=== PATIENT | female | born 1985 | race Caucasian/White ===

== ENCOUNTER 2017-04-05 17:40 | Inpatient (IN) | payer OTHER ==
[~2017-04-05] VITALS: Ht 157.5 cm; Wt 105.7 kg
[~2017-04-05 17:40] MED LIST: FERR SULFATE325 MG PO; FERROUS SULF325 M2 PO; GLYBURIDE5 M1 PO; OMNICEF300 MG PO; PRE-NATAL PO; ROCEPHIN 1 GM1 GM PO; ZITHROMAX500 MG PO
--- NOTE | 2017-04-05 17:55 | NUR ---
PT ARRIVED AMBULATORY FROM DR. GALE OFFICE HE TRIED EXTENSIVELY TO GET FHT AND WAS UNABLE TO. ORDERS FOR NST. PT HAD ACCUCHECK AT OFFICE WHICH WAS 80. SHE STATES THAT SHE FELT FM THIS AFTERNOON. ABDOMEN IS TENSE, WITH IMPRESSION OF LARGE AMT.OF AF AND LARGE FETUS. SHE IS NOT FEELING ANY CONTRACTIONS, NO VAGINAL BLEEDING. SHE DENIES HX OF MEDICAL PROBLEMS EXCEPT GESTATIONAL DIABETES ON GLYBURIDE DAILY AND HX OF C/S X 2.
[2017-04-05 18:15] VITALS: BP 143/77
--- NOTE | 2017-04-05 18:20 | NUR ---
DR. JOHNSON NOTIFIED THAT NO FHT IS HEARD DISPITE >25 MINUTES OF AUSCULTATION WITH EXTERNAL MONITOR, FETASCOPE AND DOPPLER. U/S PENDING. NO FURTHER ORDERS RECEIVED AT THIS TIME. PT AND AWARE OF PLAN OF CARE, REMAIN CALM. MOTHER THOUGHT SHE FELT FM BUT THERE WAS A CONTRACTION AND STILL UNABLE TO HEAR FHT.
[2017-04-05 18:35] LABS: URINE BILIRUBIN - DIPSTICK NEGATIVE (NEGATIVE); URINE BLOOD DIPSTICK NEGATIVE (NEGATIVE); URINE CLARITY CLEAR; URINE COLOR YELLOW; URINE GLUCOSE - DIPSTICK NEGATIVE (NEGATIVE); URINE KETONE NEGATIVE (NEGATIVE); URINE LEUK ESTERASE NEGATIVE (NEGATIVE); URINE NITRITE - DIPSTICK NEGATIVE (Negative); URINE PH 5.5 (4.5-8.0); URINE PROTEIN - DIPSTICK NEGATIVE (NEG-TRACE); URINE UROBILINOGEN - DIPSTICK 0.2 E.U./dL (0.2)
[2017-04-05 18:38] LABS: BARBITURATES NEGATIVE (NEGATIVE); COCAINE NEGATIVE (NEGATIVE); METHADONE NEGATIVE (NEGATIVE); OXCYCODONE NEGATIVE (NEGATIVE); TETRAHYDROCANNABIONOL NEGATIVE (NEGATIVE); TRICYLIC ANTIDEPRESSANTS NEGATIVE (NEGATIVE)
--- NOTE | 2017-04-05 18:57 | NUR ---
REPORT TO NIRU IGLESIAS RN , ASSUMING CARE, EXPLAINED TO PT AND
--- NOTE | 2017-04-05 18:58 | NUR ---
MATERNAL PULSE OX ON. SOME MILD CONTRACTIONS NOTED ON MONITOR, NOT FELT BY PT.
--- NOTE | 2017-04-05 19:00 | NUR ---
TOCO D/C'D, 131/59, 81,18, 98.3. PT HAVING MILD UCS EVERY 3-7 MIN.
--- NOTE | 2017-04-05 19:15 | NUR ---
PT TO US VIA WC
--- NOTE | 2017-04-05 19:20 | NUR ---
DR JOHNSON GIVEN VERBAL REPORT RE NO FHT PER US
--- NOTE | 2017-04-05 19:25 | NUR ---
DR JOHNSON AT BS, POC REVIEWED WITH PT AND SPOUSE. PT CRYING.
[2017-04-05 20:49] LABS: HEMOGLOBIN 11.8 g/dl (12.0-16.0); IMMATURE GRANULOCYTES 0.6 % (0.0-1.0); MEAN CELL VOLUME 80.2 fL CALC (80.0-100.0); MEAN CORPUSCULAR HGB 24.9 pG CALC (26.0-32.0); MEAN CORPUSCULAR HGB CONC 31.1 g/L CALC (32.0-36.0); NEUT# 6.91 thou/uL (2.00-7.15); RED BLOOD COUNT 4.74 mill/uL (4.20-5.60); RED CELL DISTRI WIDTH 18.5 % (11.5-15.5)
[2017-04-05 21:01] LABS: ALBUMIN 4.2 g/dL (3.2-5.0); ALKALINE PHOSPHATASE 118 u/l (38-126); ANION GAP 17 (6-22 (CALC)); BILIRUBIN, TOTAL 0.4 mg/dL (0.0-1.4); BUN 9 mg/dL (7-17); BUN/CREATININE RATIO 14 (12-20 (CALC)); CALCIUM 9.7 mg/dL (8.4-10.2); CARBON DIOXIDE 19 mmol/l (22-30); CHLORIDE 106 mmol/l (95-108); CREATININE 0.7 mg/dL (0.5-1.0); GFR > 60 ML/MIN (>=60 (CALC)); GFR FOR AFR.AMER. > 60 ML/MIN (>=60 (CALC)); GLUCOSE 89 mg/dL (65-105); SGOT/AST 18 u/l (14-36); SGPT/ALT 26 u/l (9-52); SODIUM 137 mmol/l (137-146); TOTAL PROTEIN 7.6 g/dL (6.3-8.2)
--- NOTE | 2017-04-05 21:45 | NUR ---
R SECTION UNDER GENERAL ANESTHESIA, STILLBORN MALE . FOOTPRINTS/BANDS APPLIED, INFANT TAKEN TO NURSERY. [id number] GRAMS.
--- NOTE | 2017-04-05 23:00 | NUR ---
PT NOT READY TO SEE . INFANT REMAINS IN NURSERY
[2017-04-05 23:28] VITALS: BP 140/63
--- NOTE | 2017-04-05 23:30 | NUR ---
PT TO RM 209 VIA STRETCHER, PERICARE DONE
[2017-04-06] VITALS (7 sets, daily range): BP systolic 108–139; BP diastolic 38–72
--- NOTE | 2017-04-06 02:00 | NUR ---
PT SLEEPING SOUNDLY, AROUSES EASILY
--- NOTE | 2017-04-06 04:22 | NUR ---
PT C/O ITCHING, BENEDRYL GIVEN PER ORDER, CBC DRAWN X1
[2017-04-06 05:11] LABS: HEMATOCRIT 25.8 % (37.0-47.0); HEMOGLOBIN 8.2 g/dl (12.0-16.0); IMMATURE GRANULOCYTES 0.4 % (0.0-1.0); MEAN CELL VOLUME 79.9 fL CALC (80.0-100.0); MEAN CORPUSCULAR HGB 25.4 pG CALC (26.0-32.0); MEAN CORPUSCULAR HGB CONC 31.8 g/L CALC (32.0-36.0); NEUT# 8.24 thou/uL (2.00-7.15); RED BLOOD COUNT 3.23 mill/uL (4.20-5.60); RED CELL DISTRI WIDTH 18.5 % (11.5-15.5)
--- NOTE | 2017-04-06 06:30 | NUR ---
FASTING ACCUCHECK 100. BEREAVEMENT BOX GIVEN TO PARENTS. PT DOES NOT WANT TO SEE INFANT AT THIS TIME, EMOTIONAL SUPPORT GIVEN
--- NOTE | 2017-04-06 06:40 | NUR ---
REPORT PREPARED FOR ONCOMING SHIFT
--- NOTE | 2017-04-06 07:00 | NUR ---
Received care of pt. Sitting up in bed with no complaints. Denies pain at this time. Significant other at bedside. Ice given per pt request. Vital signs as charted. Call light within reach.
--- NOTE | 2017-04-06 07:30 | NUR ---
Assessment completed as charted. Encouraged to drink plenty fluids and ambulate later today after chávez discontinued. Instructed to cough and deep breathe, incentive spirometer ordered. Cytotec and Glyburide given at this time. Toradol IV given for pain of 4/10 at incision. Explained to parents to ask to see baby when ready. Questions answered regarding what steps are to be taken next regarding baby. Parents encouraged to decide on home to make arrangements after they are ready. Mother encouraged to call for assistance with anything she may need or for any questions. Significant other verbalized he would be staying with pt to help her take a shower and any other needs. Family to be arriving this morning. Call light within reach.
--- NOTE | 2017-04-06 10:30 | NUR ---
PT ASSISTED OUT OF BED TO RESTROOM. MINIMAL HELP NEEDED. PT WITH NO COMPLAINTS. PRACHI CARE EXPLAINED. PRACHI CARE DONE BY PT. POLK DISCONTINUED AT THIS TIME. PT UNABLE TO VOID AT THIS TIME. WILL CONTINUE TO MONITOR. PT TO SIT UP IN CHAIR AT BEDSIDE FOR 30 MINUTES. INSTRUCTED PT NOT TO CROSS LEGS. PT VERBALIZED UNDERSTANDING.
--- NOTE | 2017-04-06 10:45 | NUR ---
PT AMBULATED TO ROOM 250. ALL BELONGINGS SENT WITH PT. ICE WATER GIVEN.
--- NOTE | 2017-04-06 11:00 | NUR ---
DR JOHNSON IN TO SEE PT. PT WITH COMPLAINT OF ITCHING, RECEIVED NEW ORDERS.
--- NOTE | 2017-04-06 11:00 | NUR ---
Shanthi SOARES, RT IN TO SET UP INCENTIVE SPIROMETER. PT ENCOURAGED TO USE EACH HOUR WHILE AWAKE.
--- NOTE | 2017-04-06 11:30 | NUR ---
PT DECLINED AUTOPSY ON BABY. PT SAD, AND TEARY-EYED WHEN SPEAKING OF BABY. DENIES DEPRESSION AT THIS TIME OTHER THAN FEELING SAD ABOUT BABY BEING STILLBORN.
--- NOTE | 2017-04-06 12:30 | NUR ---
GEOFF FROM [employer] CALLED TO UNIT TO OFFER SUPPORT TO PT. PT NOT VERBALIZING NEED FOR SUPPORT AT THIS TIME. PT DECLINED NEED TO CALL CLERGY. STATES HER [facility] HAS BEEN NOTIFIED AND HAVE COME IN TO SEE HER LAST NIGHT. PT DECLINES CONTACTING [facility] AT THIS TIME. PREFERS NOT TO LEAVE CONTACT INFORMATION. [facility] PACKET GIVEN TO PT WITH CONTACT NUMBER FOR BEREAVEMENT SUPPORT. AT THIS POINT, PT STILL UNDECIDED ON WHICH HOME SHE WANTS CONTACTED, STATES SHE IS WAITING ON FAMILY MEMBERS TO COME IN BEFORE SHE DECIDES. PT NOT READY TO SEE BABY AT THIS TIME, WOULD LIKE TO WAIT UNTIL FAMILY ARRIVES. SIGNIFICANT OTHER AT BEDSIDE. MOTHER IN TO VISIT 2 TIMES.
--- NOTE | 2017-04-06 15:35 | NUR ---
PT REQUESTING TO HAVE BABY TAKEN TO ROOM. SIBLINGS AND GRANDPARENTS IN ROOM. INFANT IN MOTHER'S ARMS. MOTHER WITH TEARS. ENCOURAGED TO HOLD AND KEEP BABY IN ROOM FOR LONG SHE WANTED AND INSTRUCTED TO CALL FOR ASSISTANCE IF NEEDED. CALL LIGHT IN REACH.
--- NOTE | 2017-04-06 18:35 | NUR ---
PT STATES SHE PREFERS NOT TO SEE BEFORE TAKEN TO HOME. PT DECIDED TO MAKE ARRANGEMENTS WITH [facility] IN [place], [place]. PT STATES BABY CAN BE PICKED UP BY HOME AT ANY TIME NOW. FAMILY AT BEDSIDE.
--- NOTE | 2017-04-06 18:45 | NUR ---
REPORT GIVEN TO Jeremias LANDEROS RN. PT WITH NO COMPLAINTS OR CONCERNS AT THIS TIME.
--- NOTE | 2017-04-06 18:45 | NUR ---
Report from prior shift on patient.
--- NOTE | 2017-04-06 18:56 | NUR ---
[facility] called and notify of demise. Home to come and get fetus. Information provided to [facility].
--- NOTE | 2017-04-06 19:10 | NUR ---
[facility] called to unit and asked whether they can come in morning. Informed staff that in room but no morgue services available for facility. Staff stated that they will arrive in a couple of hours as they have a run that they must do.
--- NOTE | 2017-04-06 19:22 | NUR ---
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 Patient voices no concern at present moment. Patient does desire to shower. Shower room set up at present moment and prepared. Informed patient to notify staff when she is ready to shower. Patient verbalized understanding of such.
--- NOTE | 2017-04-06 19:40 | NUR ---
[facility] arrived. Fetus transferred to car seat and escorted by staff to ambulance entrance at back of facility.
--- NOTE | 2017-04-06 20:57 | NUR ---
Pain level of 5 on scale of 1 to 10. Medicated with toradol 30mg iv given for pain to incisional area. Stool softerner given. Accucheck done with result of 135mg/dl.
--- NOTE | 2017-04-06 20:58 | NUR ---
Family member to bedside of patient at present moment offering supportive care.
--- NOTE | 2017-04-06 20:58 | NUR ---
Patient resting comfortably in no distress at present moment.
--- NOTE | 2017-04-06 21:30 | NUR ---
Patient states that she does not want to shower tonight and prefers to do it in morning. Patient let known that it was fine and shower in morning will be okay.
--- NOTE | 2017-04-06 21:30 | NUR ---
Patient teary eyed, sad. Support by staff given at this time. Patient given option to notify staff for needs. Patient verbalized understanding of such.
--- NOTE | 2017-04-06 22:00 | NUR ---
patient states pain level of 0 on scale of 1 to 10.
--- NOTE | 2017-04-06 23:50 | NUR ---
Patient resting comfortably in no distress at present moment.
--- NOTE | 2017-04-07 | NUR ---
Patient resting in room in no distress at present moment. Will continue to monitor.
--- NOTE | 2017-04-07 01:30 | NUR ---
Patient in no distress at present moment. Patient resting comfortably in room.
--- NOTE | 2017-04-07 02:02 | NUR ---
Patient resting comfortably still in no distress at present moment.
--- NOTE | 2017-04-07 03:05 | NUR ---
Pain level of 5 on scale of 1 to 10. Patient medicated with lortab one tablet by mouth for pain.
--- NOTE | 2017-04-07 03:06 | NUR ---
Patient teary eyed and crying. patient consoled with opportunity to vent feelings.
--- NOTE | 2017-04-07 03:30 | NUR ---
pain level on scale of 1 to 10.
--- NOTE | 2017-04-07 04:30 | NUR ---
Patient resting comfortably in room in no distress.
--- NOTE | 2017-04-07 05:48 | NUR ---
Vitals done and accucheck of 118mg/dl. Vitals of 104/47, 98.0, 96, 18.
[2017-04-07 05:50] VITALS: BP 104/47
--- NOTE | 2017-04-07 07:30 | NUR ---
PATIENT SITTING UP IN BED, UPON ARRIVAL PATIENT WAS TEARFUL. REASSURANCE WAS GIVEN. ASSISTED TO SHOWER UPON REQUEST. ADMITS TO AN INCISIONAL PAIN OF 4/10 BUT DECLINES ANY PAIN MEDICATION AT THIS TIME. BREAKFAST OFFERED. PATIENT VERBALIZES NO CONCERNS AT THIS TIME. CALL TAPIA WITHIN REACH, WILL CONTINUE TO MONITOR.
[2017-04-07] MEDS ORDERED: IBUPROFEN600 MG PO (08:20)
[2017-04-07] MEDS ORDERED: LORTAB 7.5-3251 TAB PO (08:20)
--- NOTE | 2017-04-07 08:45 | NUR ---
Discharge instructions given. Patient verbalizes understanding of same. Discharged in stable condition via Wheelchair to Home with significant other. All belongings sent with pt. PRESCRIPTIONS FOR LORTAB, MOTRIN AND GLYBURIDE GIVEN. INSTRUCTED TO CALL FOR FOLLOW UP APPT INSTRUCTED OR PRN. 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
== END 2017-04-07 08:45 | disposition home or self-care (01) | DRG 765 ==
LOC: OBOP 17:40 → OB 19:50
PROVIDERS: ADMIT Obstetrics & Gynecology; ATTEND Obstetrics & Gynecology
PROC: 10D00Z1 Extraction of Products of Conception, Low, Open Approach (ICD-10-PCS; principal; 2017-04-05)
DX: O36.4XX0 Maternal care for intrauterine death, not applicable or unspecified (principal); Z68.41 Body mass index [BMI] 40.0-44.9, adult; O24.425 Gestational diabetes mellitus in childbirth, controlled by oral hypoglycemic drugs; O99.214 Obesity complicating childbirth; E66.01 Morbid (severe) obesity due to excess calories; O34.211 Maternal care for low transverse scar from previous cesarean delivery; N85.8 Other specified noninflammatory disorders of uterus; Z3A.38 38 weeks gestation of pregnancy; Z37.1 Single stillbirth
CPT/HCPCS: J2710